=== PATIENT | female | born 1995 | race Caucasian/White ===

== ENCOUNTER 2019-01-25 08:54 | Outpatient (CLI) | END 2019-01-25 08:55 | disposition home or self-care (01) | LOC: LAB 08:54 | PROVIDERS: ATTEND Family Medicine | DX: E03.9 Hypothyroidism, unspecified (principal); E66.01 Morbid (severe) obesity due to excess calories; Z68.42 Body mass index [BMI] 45.0-49.9, adult; Z85.42 Personal history of malignant neoplasm of other parts of uterus; Z00.00 Encounter for general adult medical examination without abnormal findings | CPT/HCPCS: 36415; 80053; 80061; 82533; 83036; 83525; 84439; 84443; 84481; 85025; 86376; 86800 ==